=== PATIENT | female | born 2000 | race Caucasian/White ===

== ENCOUNTER 2019-08-21 16:29 | Emergency (ER) | payer OTHER, SELFPAY ==
[2019-08-21 17:02] VITALS: BP 133/76; PULSE 78; RESP 20; TEMP 36.7; O2SAT 100; BMI 31.6
--- NOTE | 2019-08-21 17:26 | HMH.EDUTC ---
[facility] [place] Clinical Impression: Burn of hand including fingers Qualifiers: Encounter type: initial encounter Laterality: left Burn degree: unspecified degree Qualified Code(s): T23.002A - Burn of unspecified degree of left hand, unspecified site, initial encounter Disposition: Home, Self-Care Condition on Discharge: Good Instructions: How to Take Care of a Burn, DI for Lee Additional Instructions: Clean burn area well with saline and mild soap then apply Sivadene as advised Clean wound and change dressing and apply silvadene twice daily as advised FOllow up with family doctor if any signs of infection such as redness, drainage streaks etc and if noticed follow up immediately with family doctor Return if needed Straight to ER if any life threatening symptoms You was given remainder of tub of Silvadene use as instructed in [facility] Referrals: Provider,Referral, MD [Primary Care Provider] - As needed Time of Disposition: 17:45 Medical Decision Making - Mu Inquiry Pt receiving controlled substance: No Mu was queried for this patient: No Vital Signs: 08/21/19 17:02 Temperature 98.0 F Temperature Source Oral Pulse Rate [Right Brachial] 78 Respiratory Rate 20 Blood Pressure [Right Arm] 133/76 Blood Pressure Mean [Right Arm] 95 Blood Pressure Source [Right Arm] Automatic Cuff Blood Pressure Position [Right Arm] Sitting 02 Sat by Pulse Oximetry 100 Oxygen Delivery Method Room Air Orders (Tests/Meds): ED MEDICATIONS Discontinued Medications Generic Name Dose Route Start Last Admin Trade Name Freq PRN Reason Stop Dose Admin Silver Sulfadiazine 1 gm 08/21/19 17:41 08/21/19 17:44 Silvadene Cream 400gm TP 08/21/19 17:42 1 gm ONCE ONE Administration - Reevaluation(s) Time: 17:32 Reevaluation #1: Burn cleaned with saline and mild soap, no sloughing of skin noted, patient reports felt like it helped to cool skin, [facility] [place] H[place] - General Stated complaint: AO [id number] Burn L Hnad Time Seen by Provider: 08/21/19 17:26 Mode of Arrival: Ambulatory Source of Information: Patient Limitations: No Limitations Description of Symptoms (Recalled from Triage Doc. by RN): PATIENT C/O BURN TO LEFT HAND. PATIENT STATES SHE WAS FRYING FOOD AND THE GREASE SPLASHED ONTO HER HAND HEENT Symptoms (Recalled from RN notes): No Resp Symptoms (Recalled from RN notes): No Skin Symptoms (Recalled from RN notes): Yes MS Symptoms (Recalled from RN notes): No Functional Status (Recalled from RN notes): WNL - History of Present Illness Provider Complaint: Patient states that she was frying some food in grease when the grease splashed up on her left hand causing lee to her left thumb and index finger States that she immediately cleaned it off and noticed several blister on her left thumb just below her finger nail and several small blister like areas on her left index finger. - Related Data Allergies Allergy/AdvReac Type Severity Reaction Status Date / Time No Known Allergies Allergy Verified 08/21/19 17:07 - Worker's Comp Is this a Worker's Comp case?: No H History - Hepatitis A Screen Drug use history?: No High risk sexual behaviors?: No History of sexually transmitted infection?: No Currently employed?: No Childcare worker?: No Do you have indoor plumbing?: Yes Do you have electricity?: Yes Attestation statement:: This patient has been screened for Hepatitis A risk factors. I have reviewed the patient's past medical history: Yes - Social History Alcohol Intake: never Occupational Status: other ROS Obtained: Yes All systems reviewed & no additional complaints, Yes Systems reviewed as appropriate & no additional complaints - Allergic/Immunologic Comments: Burn to left hand Physical Exam - General General appearance: alert, in no apparent distress - Respiratory Respiratory exam: Present: normal lung sounds bilaterally. Absent: respiratory distress - Cardiovascular Ca
[2019-08-21 17:40] VITALS: BP 133/76; PULSE 78; RESP 20; TEMP 36.7; O2SAT 100
== END 2019-08-21 17:45 | disposition home or self-care (01) ==
PROVIDERS: Emergency Provider Nurse Practitioner
DX: T23.002A Burn of unspecified degree of left hand, unspecified site, initial encounter (principal); Y27.2XXA Contact with hot fluids, undetermined intent, initial encounter; Y93.G3 Activity, cooking and baking; Y92.010 Kitchen of single-family (private) house as the place of occurrence of the external cause
CPT/HCPCS: 99201